=== PATIENT | male | born 1935 | race Two or more races ===

== ENCOUNTER 2018-02-07 16:35 | Inpatient (IN) | payer MEDICARE, OTHER ==
[~2018-02-07] VITALS: Ht 172.7 cm; Wt 74.8 kg
[2018-02-07 07:00] VITALS: BP 133/75
--- NOTE | 2018-02-07 16:45 | NUR ---
Initial contact with pt no acute distress family members at bedside. seen and evaluated by Dr Kraus
--- NOTE | 2018-02-07 16:51 | NUR ---
seen and evaluated by Dr Chavarria
[2018-02-07] MEDS ORDERED: DILT240C53 PO (17:02)
[2018-02-07] MEDS ORDERED: SILO8CAP2 PO (17:02)
[2018-02-07] MEDS ORDERED: METF-440 PO (17:02)
[2018-02-07] MEDS ORDERED: POTA20TA83 PO (17:02)
[2018-02-07] MEDS ORDERED: ESOM40CA52 PO (17:02)
[2018-02-07] MEDS ORDERED: SERT50TA12 PO (17:02)
[2018-02-07] MEDS ORDERED: CAND1TAB16 PO (17:02)
[2018-02-07] MEDS ORDERED: ATOR10TA PO (17:14)
[2018-02-07] MEDS ORDERED: ALOG25TA2 PO (17:14)
[2018-02-07] MEDS ORDERED: ASPI-1169 PO (17:14)
--- NOTE | 2018-02-07 17:32 | NUR ---
PAGED ORTHO PEST MANAGEMENT SUPERVISOR AGUSTIN KAPOOR
--- NOTE | 2018-02-07 17:46 | NUR ---
ORTHO ON-CALL PAGED AGAIN
--- NOTE | 2018-02-07 17:46 | NUR ---
IV access startde by other RN and labs drawn, EKG done by residential gas heat technician
[2018-02-07 17:49] LABS: BASOPHILS % (AUTO) 0.3 % (0.0-2.0); EOSINOPHILS % (AUTO) 0.7 % (0.0-6.0); HEMATOCRIT 41 % (39-51); HEMOGLOBIN 13.9 g/dL (13.5-17.5); LYMPHOCYTES # (AUTO) 0.5 /CMM (0.8-4.8); LYMPHOCYTES % (AUTO) 3.6 % (20.0-44.0); MEAN CORPUSCULAR HGB CONC 34 g/dl (31.0-36.0); MEAN CORPUSCULAR VOLUME 99 fL (80-96); MONOCYTES # (AUTO) 0.8 /CMM (0.1-1.30); MONOCYTES % (AUTO) 5.5 % (2.0-12.0); NEUTROPHILS % (AUTO) 89.9 % (43.0-81.0); PLATELET COUNT (AUTO) 198 /CMM (150-450); RED BLOOD CELL COUNT(AUTO) 4.19 MIL/uL (4.5-6.0); WHITE BLOOD COUNT (AUTO) 14.5 K/uL (4.3-11.0)
[2018-02-07 17:58] LABS: CALCIUM, SERUM 10.1 mg/dL (8.5-10.1); CARBON DIOXIDE 27 mmol/L (21-32); CHLORIDE 103 mmol/L (98-107); CREATININE 1.4 mg/dL (0.6-1.3); GLUCOSE 131 mg/dL (74-106); POTASSIUM 5.2 mmol/L (3.5-5.1); SODIUM SERUM 139 mmol/L (136-145); UREA NITROGEN, BLOOD 19 mg/dL (7-18)
--- NOTE | 2018-02-07 18:03 | NUR ---
report called to Leslie RICO pt going to room 324-1
[2018-02-07] MEDS ORDERED: IV NS 0.9% 1,000 ML IV PRN (18:26)
[2018-02-07] MEDS ORDERED: ONDANSETRON HCL/PF 4 MG/2 ML VIAL IVP PRN ×2 (18:30→19:00)
[2018-02-07] MEDS ORDERED: MAG HYDROX/AL HYDROX/SIMETH 30 ML UDC PO PRN ×2 (18:30→19:00)
[2018-02-07] MEDS ORDERED: MORPHINE SULFATE INJ 2 MG/ML DISP.SYRIN IV PRN ×4 (18:30→19:00)
[2018-02-07] MEDS ORDERED: MAGNESIUM HYDROXIDE 30 ML UDC PO PRN ×2 (18:30→19:00)
[2018-02-07] MEDS ORDERED: TEMAZEPAM 15 MG CAPSULE PO PRN ×2 (18:30→19:00)
[2018-02-07] MEDS ORDERED: ACETAMINOPHEN 325 MG TABLET PO PRN ×2 (18:30→19:00)
--- NOTE | 2018-02-07 18:40 | NUR ---
pt room assigned was changed - waiting for new room
--- NOTE | 2018-02-07 18:46 | NUR ---
returned pt from CT
--- NOTE | 2018-02-07 18:50 | NUR ---
admitted pt to floor room 324 accompanied by community planning technician with belongings and family member
[2018-02-07] MEDS ORDERED: INSULIN REGULAR, HUMAN 100 UNIT/ML 3 ML VIAL SQ PRN ×2 (19:30→21:30)
[2018-02-07] MEDS ORDERED: DEXTROSE 50%-WATER 50 ML DISP.SYRIN IV PRN ×2 (19:30→21:30)
--- NOTE | 2018-02-07 19:30 | NUR ---
TELE/RN RECEIVED PATIENT IN BED AWAKE, ALERT, ORIENTED COMFORTABLE, NO DISTRESS NOTED, FAMILY AT BEDSIDE. WILL MONITOR.
--- NOTE | 2018-02-07 20:00 | NUR ---
TELE/EVENT PROMOTER DONE PER PROTOCOL, PLAN OF CARE DISCUSSED, VERBALIZED UNDERSTANDING, SKIN ASSESSMENT NOT DONE, PER PATIENT HE HAS NO SKIN PROBLEM.
[2018-02-07] MEDS ORDERED: MORPHINE SULFATE INJ 4 MG/ML DISP.SYRIN IV PRN (20:10)
[2018-02-07] MEDS: IV NS 0.9% 1,000 ML IV PRN (20:29)
[2018-02-07] MEDS ORDERED: HEPARIN SODIUM, PORCINE 5000 UNITS/1 ML VIAL SQ SCH (21:00)
--- NOTE | 2018-02-07 21:45 | NUR ---
TELE/RN ERLIN LEÓN, WAS AT BEDSIDE AT 2056. PER NATALIE, SURGERY WILL HAPPEN PROBABLY ON FRIDAY.
[2018-02-07 21:47] VITALS: BP 133/75
[2018-02-07] MEDS: HEPARIN SODIUM, PORCINE 5000 UNITS/1 ML VIAL SQ SCH (21:51)
--- NOTE | 2018-02-07 21:55 | NUR ---
TELE/RN ACCU CHECK BLOOD SUGAR 150, PATIENT REFUSED INSULIN COVERAGE.
[2018-02-07] MEDS: BLOOD SUGAR DIAGNOSTIC 1 EACH STRIP IN SCH ×2 (21:59→22:00)
[2018-02-07] MEDS ORDERED: TEMAZEPAM 7.5 MG CAPSULE PO PRN (22:03)
--- NOTE | 2018-02-07 22:27 | NUR ---
TELE/RH IVF WAS STOPPED PER PATIENT'S REQUEST. PER PATIENT HE A OVERACTIVE BLADDER THAT IVF MAKES HIM URINATE VERY FREQUENTLY AND HE WANTS TO GO SLEEP.
--- NOTE | 2018-02-07 23:00 | NUR ---
TELE/RN PATIENT IS SLEEPING AT THIS TIME, APPEAR COMFORTABLE, BREATHING EVEN AND UNLABORED, CALL LIGHT IN REACH. WILL CONTINUE TO MONITOR.
[2018-02-08] VITALS: BP 135/62
[2018-02-08] MEDS: HYDROMORPHONE 1 MG/1 ML DISP.SYRIN IV PRN ×4 (01:09→14:59)
--- NOTE | 2018-02-08 01:15 | NUR ---
TELE/RN AMENDMENT TO COMMENT ON DILAUDID ADMINISTRATION. DILAUDID WAS SCANNED AND ADMINISTERED AT AROUND 22:23(NOT 21:23).
--- NOTE | 2018-02-08 02:04 | NUR ---
TELE/RN PATIENT IS AWAKE AT THIS TIME, REQUESTED FOR A SLEEPING PILL, TEMAZEPAM 7.5 MG PO WAS GIVEN ORDERED. WILL MONITOR.
[2018-02-08 04:00] VITALS: BP 149/76
[2018-02-08 06:24] LABS: BASOPHILS % (AUTO) 0.1 % (0.0-2.0); EOSINOPHILS % (AUTO) 0.7 % (0.0-6.0); HEMATOCRIT 42 % (39-51); LYMPHOCYTES # (AUTO) 1.1 /CMM (0.8-4.8); MEAN CORPUSCULAR HGB CONC 33 g/dl (31.0-36.0); MEAN CORPUSCULAR VOLUME 98 fL (80-96); MONOCYTES # (AUTO) 1.6 /CMM (0.1-1.30); MONOCYTES % (AUTO) 10.6 % (2.0-12.0); NEUTROPHILS # (AUTO) 12.6 /CMM (1.8-8.9); NEUTROPHILS % (AUTO) 81.6 % (43.0-81.0); PLATELET COUNT (AUTO) 183 /CMM (150-450); RED BLOOD CELL COUNT(AUTO) 4.28 MIL/uL (4.5-6.0); WHITE BLOOD COUNT (AUTO) 15.5 K/uL (4.3-11.0)
[2018-02-08 06:28] LABS: ALBUMIN 3.6 g/dL (3.4-5.0); CALCIUM, SERUM 9.5 mg/dL (8.5-10.1); CARBON DIOXIDE 28 mmol/L (21-32); CHLORIDE 102 mmol/L (98-107); CREATININE 1.1 mg/dL (0.6-1.3); GLUCOSE 140 mg/dL (74-106); PHOSPHORUS 3.2 mg/dL (2.5-4.9); POTASSIUM 3.9 mmol/L (3.5-5.1); SODIUM SERUM 137 mmol/L (136-145); UREA NITROGEN, BLOOD 18 mg/dL (7-18)
[2018-02-08] MEDS: BLOOD SUGAR DIAGNOSTIC 1 EACH STRIP IN SCH ×6 (06:41→22:00)
--- NOTE | 2018-02-08 06:41 | NUR ---
MS/RN ACCU CHECK BLOOD SUGAR = 132, PATIENT REFUSED INSULIN.
--- NOTE | 2018-02-08 07:18 | NUR ---
TELE/RN OPENING NOTED THE PATIENT IS RECEIVED IN BED. PATIENT IS AWAKE. ALERT AND ORIENTED X4 AND ABLE TO MAKE NEEDS KNOWN VERBALLY. THE PATIENT VERBALIZES PAIN OF LEFT HIP 2/10 BUT DOES NOT WANT PAIN MEDICATION. IN ROOM AIR AND DENIES SOB. RESPIRATION REGULAR AND UNLABORED. RAC G 20 PATENT AND SALINE LOCKED. THE PATIENT IS ENCOURAGED IV FLUID TO BE CONNECTED PER ORDER, HOWEVER, THE PATIENT REQUESTED THE IV TO BE CONNECTED LATER TIME. PEDAL PULSES PRESENT. NO S/S POOR CIRCULATION NOTED. BED LOW AND LOCKED. CALL LIGHT WITHIN REACH. WILL CONTINUE TO MONITOR.
[2018-02-08 08:00] VITALS: BP_SYST 144; BP_SYST 145; BP_DIAS 71; BP_DIAS 75
--- NOTE | 2018-02-08 08:21 | NUR ---
TELE/RN NOTE BLOOD SUGAR IS 129. NO COVERAGE GIVEN.
[2018-02-08] MEDS: ASPIRIN 81 MG TAB.CHEW PO SCH (08:44)
[2018-02-08] MEDS: SERTRALINE HCL 50 MG TABLET PO SCH (08:45)
[2018-02-08] MEDS: DILTIAZEM HCL CD 240 MG PO SCH ×2 (08:46→17:02)
[2018-02-08] MEDS: HEPARIN SODIUM, PORCINE 5000 UNITS/1 ML VIAL SQ SCH (08:46)
[2018-02-08] MEDS ORDERED: CANDESARTAN PO SCH ×2 (09:00)
[2018-02-08] MEDS ORDERED: RAPAFLO 8 MG PO SCH (09:00)
[2018-02-08] MEDS ORDERED: HYDROCHLOROTHIAZIDE PO SCH ×2 (09:00)
[2018-02-08] MEDS ORDERED: ALOGLIPTIN 25 MG PO SCH (09:00)
[2018-02-08] MEDS: METFORMIN 500 MG TABLET PO SCH ×2 (09:00→17:00)
[2018-02-08] MEDS ORDERED: PANTOPRAZOLE 40 MG VIAL IV SCH ×2 (09:00)
--- NOTE | 2018-02-08 09:00 | NUR ---
TELE/RN NOTE CASTRO CATHETER F 16 IS INSERTED PER ORDER. THE PATIENT TOLERATED THE INSERTION WELL. CASTRO CATH STARTED TO DRAIN CLEAR, YELLOW COLOR URINE. THE PATIENT DENIES DISCOMFORT. WILL CONTINUE TO MONITOR.
[2018-02-08 09:15] LABS: ALANINE AMINOTRANSFERASE 32 U/L (12-78); ALBUMIN 3.6 g/dL (3.4-5.0); ALKALINE PHOSPHATASE 73 U/L (46-116); ASPARTATE AMINOTRANSFERASE 35 U/L (15-37); BILIRUBIN,DIRECT 0.2 mg/dL (0.0-0.2); BILIRUBIN,TOTAL 0.8 mg/dL (0.2-1.0); TOTAL PROTEIN, SERUM 6.4 g/dL (6.4-8.2)
[2018-02-08 09:24] LABS: CHOLESTEROL 101 mg/dL (<200); HDL CHOLESTEROL 62 mg/dL (40-60); LDL 34 mg/dL (0-99); THYROID STIMULATING HORMONE 1.422 uIU/mL (0.358-3.74); TRIGLYCERIDES 52 mg/dL (30-150)
[2018-02-08] MEDS: ENOXAPARIN SODIUM 40 MG/0.4 ML DISP.SYRIN SQ SCH (09:29)
--- NOTE | 2018-02-08 09:30 | NUR ---
TELE/RN NOTE BED BATH GIVEN.
--- NOTE | 2018-02-08 09:55 | NUR ---
TELE/RN NOTE PATIENT REFUSED METFORMIN 1000 MG PO. EXPLAINED RISKS AND BENEFITS BUT STILL REFUSED. WILL CONTINUE TO MONITOR
[2018-02-08] MEDS: VALSARTAN 80 MG TABLET PO SCH (10:00)
[2018-02-08] MEDS: POTASSIUM CHLORIDE 20 MEQ TAB.PRT.SR PO SCH ×2 (10:00→17:02)
--- NOTE | 2018-02-08 11:11 | NUR ---
TELE/RN NOTE LEFT HIP PAIN 8/10 PER PATIENT. DILAUDID 1 MG IV PUSH IS ADMINISTERED. WILL CONTINUE TO MONITOR.
--- NOTE | 2018-02-08 11:40 | NUR ---
TELE/RN NOTE THE PATIENT REFUSED LOVENOX DUE TO HE ALREADY RECEIVED HEPARIN THIS MORNING. ANCELMO AGUIAR IS AWARE.
--- NOTE | 2018-02-08 11:41 | NUR ---
TELE/RN NOTE REASSESSED PAIN: THE PATIENT VERBALIZED LEFT HIP PAIN REDUCED TO 1/10 AND DOES NOT WANT MORE MEDICATION AT THIS TIME. WILL CONTINUE TO MONITOR.
[2018-02-08 11:52] LABS: APPEARANCE,URINE CLEAR (CLEAR); BILIRUBIN,URINE NEGATIVE (NEGATIVE); BLOOD, URINE TRACE-INTA Ery/uL (NEGATIVE); COLOR,URINE YELLOW (YELLOW); KETONES,URINE TRACE (NEGATIVE); LEUKOCYTE ESTERASE ,URINE NEGATIVE (NEGATIVE); NITRITE, URINE NEGATIVE (NEGATIVE); PROTEIN,URINE NEGATIVE (NEGATIVE); UGLUCOSE NEGATIVE (NEGATIVE); UROBILINOGEN,URINE 0.2 EU/dL (0.2)
--- NOTE | 2018-02-08 12:00 | NUR ---
TELE/RN NOTE BLOOD SUGAR IS 126. NO COVERAGE GIVEN. PATIENT IN STABLE CONDITION.
[2018-02-08 13:28] LABS: BACTERIA,URINE None seen /HPF (None Seen); SQUAMOUS EPITHELIAL CELL,UR Rare /HPF (None Seen)
[2018-02-08 13:29] LABS: WBC,URINE 0-2 /HPF (0-3)
--- NOTE | 2018-02-08 14:11 | NUR ---
TELE/RN NOTE THE PATIENT SLEEPING. RESPIRATION REGULAR AND UNLABORED. IN NO APPARENT DISTRESS.
--- NOTE | 2018-02-08 15:00 | NUR ---
TELE/RN NOTE COMPLAINS OF LEFT HIP PAIN 9/10 AND PRN DILAUDID 1 MG IV PUSH IS GIVEN. WILL CONTINUE TO MONITOR.
--- NOTE | 2018-02-08 15:30 | NUR ---
TELE/RN NOTE THE PATIENT VERBALIZED RELIEF FROM LEFT HIP PAIN AFTER ADMINISTRATION OF PRN DILAUID. RATED PAIN 0/10. RESPIRATION REGULAR AND UNLABORED. NO S/S RESPIRATORY DISTRESS. PATIENT IN NO APPARENT DISTRESS.
[2018-02-08 16:00] VITALS: BP 131/75
[2018-02-08] MEDS: oxyCODONE/APAP (5/325 MG) 1 UDTAB TABLET PO PRN (17:00)
--- NOTE | 2018-02-08 17:00 | NUR ---
TELE/RN NOTE THE PATIENT COMPLAINS OF LEFT HIP PAIN 11/26. PERCOCET 5/325 2 TABS GIVEN. WILL CONTINUE TO MONITOR.
--- NOTE | 2018-02-08 17:10 | NUR ---
TELE/RN NOTE BLOOD SUGAR 112. NO INSULIN COVERAGE GIVEN. THE PATIENT IN STABLE CONDITION.
--- NOTE | 2018-02-08 17:50 | NUR ---
TELE/RN NOTE PATIENT REFUSED METFORMIN 100 MG PO DESPITE EXPLAINING RISKS AND BENEFITS.
[2018-02-08] MEDS: ATORVASTATIN 10 MG TABLET PO SCH (18:00)
--- NOTE | 2018-02-08 18:50 | NUR ---
TELE/RN CLOSING NOTE THE PATIENT ALERT AND ORIENTED X4. DENIES PAIN AT THIS TIME. RESPIRATION REGULAR AND UNLABORED. IN ROOM AIR AND SATURATION IS AT 94%. DENIES SOB. IN NO APPARENT DISTRESS. TELE BOX READING IS SR 86. IV FLUID INFUSING PER ORDER. NO S/S INFILTRATION NOTED. BED LOW AND LOCKED. SIDE RAILS UP X3. CALL LIGHT WITHIN REACH. WILL ENDORSE TO RADIOISOTOPE TECHNICIAN.
[2018-02-08 20:00] VITALS: BP_SYST 127; BP_SYST 137; BP_DIAS 63; BP_DIAS 66
--- NOTE | 2018-02-08 20:12 | NUR ---
RECIEVED ALERT AND ORIENTATED. SPEECH CLEAR NOTED 02 SAT RA 88% DEEP BREATHS TAKE UP TO 93% PLACED ON 02 2 LITERS. CARMEN PPP AND FEET WARM AND MOVEMENT CARMEN LEGS PRESENT. CASTRO PATENT
[2018-02-08] MEDS: TAMSULOSIN 0.4 MG CAP.SR.24H PO SCH (22:20)
[2018-02-08] MEDS: IV NS 0.9% 1,000 ML IV PRN (22:29)
[2018-02-09] VITALS (11 sets, daily range): BP systolic 98–147; BP diastolic 55–69
[2018-02-09] MEDS: HYDROMORPHONE 1 MG/1 ML DISP.SYRIN IV PRN ×8 (00:48→20:08)
[2018-02-09] MEDS: BLOOD SUGAR DIAGNOSTIC 1 EACH STRIP IN SCH ×5 (06:25→22:32)
--- NOTE | 2018-02-09 06:38 | NUR ---
REMAINS ALERT AND ORIENTATED X4. AWARE HE IS GOING FOR SURGERY THIS AM TO REPAIR THE LEFT HIP. REUBEN ROCHA WAS MEDICATED X2 FOR LEFT HIP PAIN AND THE ANALGESIC WAS EFFECTIVE. HE NEEDS TO BE ASKED ABOUT HIS PAIN OTHERWISE HE WONT ASK FOR AN ANALGESIC. THE LEFT LEG REMAINS IN GOOD ALIGNMENT AND PPP AND FOOT WARM/ NPO SINCE MIDNIGHT. CONSENT SIGNED BY THE PATIENT
--- NOTE | 2018-02-09 07:05 | NUR ---
PUPPET ENGINEER INITIAL NOTES Report received at bedside. Patient received in bed, awake, and comfortable. Alert and oriented x4, verbally responsive. Denies any pain at the moment. On continuous oxygen with no SOB/labored breathing noted. Cabello cath noted. Planned surgery on left hip. Consensts are signed. Checklist done. Safety measures in place. Will continue to monitor and assess patient. Call light within reach. TELE: SR [id number]
[2018-02-09 07:40] LABS: BASOPHILS % (AUTO) 0.3 % (0.0-2.0); EOSINOPHILS % (AUTO) 2.5 % (0.0-6.0); HEMATOCRIT 38 % (39-51); HEMOGLOBIN 12.6 g/dL (13.5-17.5); LYMPHOCYTES # (AUTO) 0.8 /CMM (0.8-4.8); LYMPHOCYTES % (AUTO) 6.7 % (20.0-44.0); MEAN CORPUSCULAR HGB CONC 34 g/dl (31.0-36.0); MEAN CORPUSCULAR VOLUME 98 fL (80-96); MONOCYTES # (AUTO) 1.9 /CMM (0.1-1.30); MONOCYTES % (AUTO) 14.8 % (2.0-12.0); NEUTROPHILS # (AUTO) 9.5 /CMM (1.8-8.9); NEUTROPHILS % (AUTO) 75.7 % (43.0-81.0); PLATELET COUNT (AUTO) 151 /CMM (150-450); RED BLOOD CELL COUNT(AUTO) 3.83 MIL/uL (4.5-6.0); WHITE BLOOD COUNT (AUTO) 12.5 K/uL (4.3-11.0)
[2018-02-09 07:56] LABS: CARBON DIOXIDE 27 mmol/L (21-32); CHLORIDE 104 mmol/L (98-107); CREATININE 1.2 mg/dL (0.6-1.3); GLUCOSE 142 mg/dL (74-106); POTASSIUM 4.3 mmol/L (3.5-5.1); SODIUM SERUM 137 mmol/L (136-145); UREA NITROGEN, BLOOD 21 mg/dL (7-18)
--- NOTE | 2018-02-09 07:59 | NUR ---
PERSONALIZATION SPECIALIST - PROCEDURE NOTES Received a call from Pat (OR) to order one unit of blood to be ready for surgery later in the pm.
[2018-02-09 08:04] LABS: CALCIUM, SERUM 8.5 mg/dL (8.5-10.1)
--- NOTE | 2018-02-09 08:32 | NUR ---
COIL CONNECTOR REPAIRERAIR DIRECTOR NOTES Called OR and verified if BP medications are okay to give with small sip of water. Anesthesiologist in a case at the moment. Will wait for call back Addendum: 02/09/18 at 0833 by STACIE LOPEZ RN 127/[phone] 98.7 95%
[2018-02-09] MEDS: PANTOPRAZOLE 40 MG TABLET.DR PO SCH (08:34)
[2018-02-09] MEDS: POTASSIUM CHLORIDE 20 MEQ TAB.PRT.SR PO SCH ×3 (08:34→17:08)
[2018-02-09] MEDS: METFORMIN 500 MG TABLET PO SCH ×2 (08:34→09:00)
[2018-02-09] MEDS: SERTRALINE HCL 50 MG TABLET PO SCH (08:34)
[2018-02-09] MEDS: LINAGLIPTIN 5 MG TABLET PO SCH ×2 (08:34→09:00)
[2018-02-09] MEDS: ENOXAPARIN SODIUM 40 MG/0.4 ML DISP.SYRIN SQ SCH (08:41)
--- NOTE | 2018-02-09 08:43 | NUR ---
MASTER RIGGER NOTES Patient is scheduled for surgery at 1430 for Left hip fracture. NPO since midnight. Patient refused to take metformin, kdur and tradjenta until able to eat. Explained risks vs benefits x2 but continues to refuse at the moment. Awaiting for anesthesiologist to call back for BP and ASA meds Addendum: 02/09/18 at 1018 by STACIE LOPEZ RN Continue to wait for Anesthesiologist to call back for instructions on BP meds administration/Hold
[2018-02-09] MEDS: ASPIRIN 81 MG TAB.CHEW PO SCH (09:00)
[2018-02-09] MEDS ORDERED: LOSARTAN POTASSIUM 50 MG TABLET PO SCH (09:00)
[2018-02-09] MEDS: IV NS 0.9% 1,000 ML IV PRN (11:24)
--- NOTE | 2018-02-09 11:34 | NUR ---
AUTOCAD OPERATOROPERATIONAL COMMUNICATION CHIEF NOTES Spoke to OR nurses (Heavenly): okay to give BP meds now per Dr. Ron. Will administer BP meds prior to surgery. Addendum: 02/09/18 at 1144 by STACIE LOPEZ RN Given
[2018-02-09] MEDS: VALSARTAN 80 MG TABLET PO SCH (11:38)
[2018-02-09] MEDS: DILTIAZEM HCL CD 240 MG PO SCH ×2 (11:38→17:08)
[2018-02-09] MEDS: HYDROCHLOROTHIAZIDE 25 MG TABLET PO SCH (11:39)
--- NOTE | 2018-02-09 11:42 | NUR ---
MS TRIM AND BURR OPERATOR NOTES Patient being transported to OR in stable condition by OR transport staff
[2018-02-09] MEDS ORDERED: IOHEXOL-350 100 ML VIAL IV ONE ×2 (12:25→12:36)
[2018-02-09] MEDS ORDERED: IV NS 0.9% 250 ML IV ONE (12:26)
[2018-02-09] MEDS ORDERED: CT SWABBABLE VALVE TRANS SET 1 EA INFUS.SET MC ONE (12:26)
[2018-02-09] MEDS ORDERED: BACITRACIN 50000 UNITS/VIAL ONE (12:51)
[2018-02-09] MEDS ORDERED: ALBUTEROL FS 2.5 MG/3 ML VIAL.NEB ONE (14:37)
--- NOTE | 2018-02-09 14:52 | NUR ---
MS RN REPORT Received report from OR nurse that surgery is cancelled and patient is intubated due to hypoxemia and will be transferred to ICU.
[2018-02-09] MEDS ORDERED: FENTANYL PF 100MCG/2ML AMPUL ONE (15:05)
--- NOTE | 2018-02-09 15:05 | NUR ---
MS RICO NOTES Patient's daughter, Luz Maria, came back to unit floor. Kept daughter updated. Daughter and decided to wait in the surgery waiting room. Will keep them updated once room in ICU is provided. Per daughter, all belongings were taken home. Only snacks was left behind. Belongings form in the chart with the patient in OR. Addendum: 02/09/18 at 1614 by STACIE LOPEZ RN Informed the daughter of patient's room number in ICU. Escorted daughter and her . Gave report to JACKY Hamlin @[phone])
--- NOTE | 2018-02-09 15:30 | NUR ---
MEDICAL SURGERY NURSE ADMITTED INTO ICU FROM RECOVERY ROOM FOR LOW SPO2. PT PLACED ON SIMPLE MASK AT 10L WITH SPO2 VARIABLE. PT AWAKE AND ALERT. C/O PAIN
[2018-02-09] MEDS ORDERED: IV NS 0.9% 1,000 ML IV SCH (16:00)
[2018-02-09 16:55] LABS: ABG BASE EXCESS -4.4 mmol/L; ABG OXYGEN SATURATION 87.2 % (92.0-98.5); ABG PCO2 36.8 mmHg (35.0-45.0); ABG PH 7.362 (7.350-7.450); ABG PO2 54.8 mmHg (75.0-100.0); AaDO2 188.1 mmHg; COHb 0.5 % (0.5-1.5); MetHb 0.4 % (0.0-1.5); O2Hb 86.4 % (94.0-97.0); SITE, ABG Left Radial
--- NOTE | 2018-02-09 16:58 | NUR ---
MASTER GLAZIER MEDICATED FOR PAIN REQUESTED. RESP EVEN WITH STABLE SPO2.
[2018-02-09] MEDS ORDERED: DEXTROSE 50%-WATER 50 ML DISP.SYRIN IV PRN (17:00)
[2018-02-09] MEDS ORDERED: ALBUTEROL HALF STRENGTH 1.25 MG/3 ML VIAL.NEB NEB PRN (17:30)
[2018-02-09] MEDS ORDERED: IPRATROPIUM NEB FS 0.5 MG/2.5 ML AMPUL.NEB NEB PRN (17:30)
--- NOTE | 2018-02-09 17:30 | NUR ---
MISSILE AND MISSILE CHECKOUT TECHNICIAN PT MORE COMFORTABLE NOW. STATED PAIN RELIEVED BY MED.
[2018-02-09] MEDS: ATORVASTATIN 10 MG TABLET PO SCH (17:43)
--- NOTE | 2018-02-09 18:00 | NUR ---
LINOTYPE MACHINIST PT STABLE ON 10L MASK, WITH SPO2 92-96%. COMFORTABLE. RESP TX ORDERED. ULTRASOUND OF LOWER EXTREMITIES ORDERED.
[2018-02-09] MEDS: methylPREDNISolone SOD SUCC 40 MG/ML VIAL IV SCH ×2 (18:31→20:07)
--- NOTE | 2018-02-09 19:03 | NUR ---
DISABILITY ADVOCATE. INITIAL ASSESSMENT. RECEIVED THE PT REST ON THE BED. AWAKE, ALERT. FOLLOW COMMANDS. SLIP MIXER SHOWING NSR. IV RT AC 20G. IVF NS 100ML/H. OXYGEN SIMPLE MASK. SAT 93%. HOB ELEVATED. WILL CONTINUE TO MONITOR VITALS.
[2018-02-09] MEDS: TAMSULOSIN 0.4 MG CAP.SR.24H PO SCH (22:32)
[2018-02-10] VITALS (32 sets, daily range): BP systolic 90–140; BP diastolic 44–76
--- NOTE | 2018-02-10 03:29 | NUR ---
agricultural education instructor. am care. oral care, bed bath given. linen changed. remaining same oxygen tolerated well. sat 95%. no acute distress noted. media monitor showing nsr. iv rt hand saline lock. afebrile. fc patent. urine draining. turn and reposition q2h. will continue to monitor vitals.
[2018-02-10 04:49] LABS: BASOPHILS % (AUTO) 0.1 % (0.0-2.0); HEMATOCRIT 37 % (39-51); HEMOGLOBIN 12.4 g/dL (13.5-17.5); LYMPHOCYTES # (AUTO) 0.2 /CMM (0.8-4.8); LYMPHOCYTES % (AUTO) 2.1 % (20.0-44.0); MEAN CORPUSCULAR HGB CONC 33 g/dl (31.0-36.0); MEAN CORPUSCULAR VOLUME 98 fL (80-96); MONOCYTES # (AUTO) 0.6 /CMM (0.1-1.30); MONOCYTES % (AUTO) 4.9 % (2.0-12.0); NEUTROPHILS # (AUTO) 10.7 /CMM (1.8-8.9); NEUTROPHILS % (AUTO) 92.9 % (43.0-81.0); PLATELET COUNT (AUTO) 145 /CMM (150-450); WHITE BLOOD COUNT (AUTO) 11.5 K/uL (4.3-11.0)
[2018-02-10 04:58] LABS: CALCIUM, SERUM 8.3 mg/dL (8.5-10.1); CARBON DIOXIDE 24 mmol/L (21-32); CHLORIDE 105 mmol/L (98-107); CREATININE 1.2 mg/dL (0.6-1.3); GLUCOSE 198 mg/dL (74-106); POTASSIUM 4.6 mmol/L (3.5-5.1); SODIUM SERUM 139 mmol/L (136-145); UREA NITROGEN, BLOOD 23 mg/dL (7-18)
[2018-02-10] MEDS: HYDROMORPHONE 1 MG/1 ML DISP.SYRIN IV PRN ×3 (05:03→23:45)
--- NOTE | 2018-02-10 07:00 | NUR ---
RN NOTES RECEIVED PT ON BED, A/Ox3, ON SIMPLE MASK RESPIRATION EVEN AND UNLABORED, O2 SAT 98%, NO SOB NOTED, ON TELE SR HR IN 70'S , R AC IV SITE CLEAN, DRY AND INTACT, SR UP X3, CALL LIGHT WITHIN EASY REACH, BED LOCKED AND IN LOWEST POSITION. CONTINUE TO MONITOR.
[2018-02-10] MEDS: PANTOPRAZOLE 40 MG TABLET.DR PO SCH (08:11)
[2018-02-10] MEDS: methylPREDNISolone SOD SUCC 40 MG/ML VIAL IV SCH ×2 (08:11→22:45)
[2018-02-10] MEDS: ASPIRIN 81 MG TAB.CHEW PO SCH (08:11)
[2018-02-10] MEDS: POTASSIUM CHLORIDE 20 MEQ TAB.PRT.SR PO SCH ×2 (08:12→16:52)
[2018-02-10] MEDS: DILTIAZEM HCL CD 240 MG PO SCH ×2 (08:12→16:52)
[2018-02-10] MEDS: SERTRALINE HCL 50 MG TABLET PO SCH (08:13)
[2018-02-10] MEDS: HYDROCHLOROTHIAZIDE 25 MG TABLET PO SCH (08:13)
[2018-02-10] MEDS: ENOXAPARIN SODIUM 40 MG/0.4 ML DISP.SYRIN SQ SCH (08:13)
[2018-02-10] MEDS: INSULIN REGULAR, HUMAN 100 UNIT/ML 3 ML VIAL SQ PRN ×3 (08:14→16:53)
[2018-02-10] MEDS: BLOOD SUGAR DIAGNOSTIC 1 EACH STRIP IN SCH ×4 (08:14→22:45)
[2018-02-10] MEDS: VALSARTAN 80 MG TABLET PO SCH (09:00)
--- NOTE | 2018-02-10 10:00 | NUR ---
RN NOTES PT PLACED ON O2 3L N/C , O2 SAT 94%, TOLERATING WELL, NO DISTRESS NOTED , CONTINUE TO MONITOR.
[2018-02-10] MEDS: ACETYLCYSTEINE 10% SOLN 400 MG/4 ML VIAL NEB SCH ×3 (11:46→23:16)
[2018-02-10] MEDS: IPRATROPIUM NEB FS 0.5 MG/2.5 ML AMPUL.NEB NEB SCH ×4 (11:46→23:16)
[2018-02-10] MEDS: ALBUTEROL HALF STRENGTH 1.25 MG/3 ML VIAL.NEB NEB SCH ×4 (11:46→23:16)
[2018-02-10] MEDS: oxyCODONE/APAP (5/325 MG) 1 UDTAB TABLET PO PRN (12:47)
--- NOTE | 2018-02-10 14:00 | NUR ---
RN NOTES PT STABLE , REFUSED TO TURN , C/O PAIN WHEN HE TURNS, SUPPORTIVE FAMILY AT THE BEDSIDE, CONTINUE TO MONITOR .
[2018-02-10] MEDS: ATORVASTATIN 10 MG TABLET PO SCH (17:00)
--- NOTE | 2018-02-10 18:18 | NUR ---
RN NOTES NO DISTRESS NOTED, TOLERATING O2 AT 3L N/C WELL , NO SOB NOTED , SR UPx3, CALL LIGHT WITHIN EASY REACH, WILL ENDOSE TO FOSTER CARE SOCIAL WORKER NURSE FOR CONTINUITY OF CARE .
--- NOTE | 2018-02-10 19:30 | NUR ---
TECHNICAL AGRONOMIST NOTE RECEIVED PT A/O X 3-4 AND ABLE TO VERBALIZE NEEDS. ON 4L OF O2 VIA NC AND SATURATING WELL. BREATHING REGULAR AND UNLABORED. TELE-SR 71. IV RAC #20 CLEAN, DRY AND PATENT. PT REFUSING TO BE REPOSITIONED. NO C/O PAIN WITH INACTIVITY. INFORMED PT WILL BE NPO AFTER MIDNIGHT. CASTRO CATHETER IN PLACE AND DRAINING BY GRAVITY. CALL LIGHT WITHIN REACH. WILL CONTINUE TO MONITOR.
[2018-02-10] MEDS: TAMSULOSIN 0.4 MG CAP.SR.24H PO SCH (22:45)
[2018-02-11] VITALS (21 sets, daily range): BP systolic 103–147; BP diastolic 50–112
--- NOTE | 2018-02-11 | NUR ---
SHEET ROCK APPLICATOR NOTE PT C/O 09/26 LEFT HIP PAIN. GAVE DILAUDID 1MG/1ML IVP AND WELL TOLERATED. WILL MONITOR.
[2018-02-11 05:28] LABS: BASOPHILS % (AUTO) 0.1 % (0.0-2.0); HEMATOCRIT 37 % (39-51); HEMOGLOBIN 12.4 g/dL (13.5-17.5); LYMPHOCYTES # (AUTO) 0.3 /CMM (0.8-4.8); LYMPHOCYTES % (AUTO) 1.5 % (20.0-44.0); MEAN CORPUSCULAR HGB CONC 33 g/dl (31.0-36.0); MEAN CORPUSCULAR VOLUME 99 fL (80-96); MONOCYTES % (AUTO) 5.2 % (2.0-12.0); NEUTROPHILS % (AUTO) 93.2 % (43.0-81.0); PLATELET COUNT (AUTO) 176 /CMM (150-450); RED BLOOD CELL COUNT(AUTO) 3.77 MIL/uL (4.5-6.0); WHITE BLOOD COUNT (AUTO) 19.3 K/uL (4.3-11.0)
[2018-02-11 05:29] LABS: CALCIUM, SERUM 8.9 mg/dL (8.5-10.1); CARBON DIOXIDE 24 mmol/L (21-32); CHLORIDE 103 mmol/L (98-107); CREATININE 1.6 mg/dL (0.6-1.3); GLUCOSE 259 mg/dL (74-106); POTASSIUM 4.3 mmol/L (3.5-5.1); SODIUM SERUM 137 mmol/L (136-145); UREA NITROGEN, BLOOD 38 mg/dL (7-18)
[2018-02-11] MEDS: HYDROMORPHONE 1 MG/1 ML DISP.SYRIN IV PRN ×2 (05:53→11:55)
[2018-02-11 07:10] LABS: ABG BASE EXCESS -0.5 mmol/L; ABG OXYGEN SATURATION 94.9 % (92.0-98.5); ABG PCO2 46.2 mmHg (35.0-45.0); ABG PH 7.357 (7.350-7.450); ABG PO2 83.6 mmHg (75.0-100.0); AaDO2 119.5 mmHg; COHb 0.3 % (0.5-1.5); MetHb 0.9 % (0.0-1.5); O2Hb 93.8 % (94.0-97.0); SITE, ABG Right Radial; VENT MODE, BG NASAL CANNULA
[2018-02-11] MEDS: IPRATROPIUM NEB FS 0.5 MG/2.5 ML AMPUL.NEB NEB SCH ×3 (07:19→19:35)
[2018-02-11] MEDS: ACETYLCYSTEINE 10% SOLN 400 MG/4 ML VIAL NEB SCH ×3 (07:19→23:45)
[2018-02-11] MEDS: ALBUTEROL HALF STRENGTH 1.25 MG/3 ML VIAL.NEB NEB SCH ×3 (07:19→19:35)
[2018-02-11] MEDS ORDERED: ANESTHESIA TRAY IN PYXIS 1 EA TRAY MC ONE (07:20)
--- NOTE | 2018-02-11 07:20 | NUR ---
RN NOTES RECEIVED REPORT FROM JACKY GRIMALDO FOR CONTINUITY OF CARE. PATIENT AWAKE AND ALERTX3, VERBALLY RESPONSIVE. ON ROUTE FOR SCHEDULED SURGERY. WILL ASSESS THE PATIENT FURTHER WHEN HE COMES BACK FROM SURGERY.
--- NOTE | 2018-02-11 07:26 | NUR ---
PACKAGER HEAD NOTE PT REMAINED STABLE DURING SHIFT. NO ACUTE DISTRESS NOTED. SURGERY ORDERED STAT CXR AND ABG AND RELAYED RESULTS. PT PICKED UP BY SURGERY TEAM. WILL ENDORSE TO NEXT SHIFT FOR CONTINUITY OF CARE.
[2018-02-11] MEDS: BLOOD SUGAR DIAGNOSTIC 1 EACH STRIP IN SCH ×4 (07:30→21:16)
[2018-02-11] MEDS: PANTOPRAZOLE 40 MG TABLET.DR PO SCH (07:30)
[2018-02-11] MEDS ORDERED: BACITRACIN 50000 UNITS/VIAL ONE (07:54)
[2018-02-11] MEDS ORDERED: BUPIVACAINE 0.25% 75 MG/30 ML VIAL ONE (07:54)
[2018-02-11] MEDS: ASPIRIN 81 MG TAB.CHEW PO SCH (08:09)
[2018-02-11] MEDS: SERTRALINE HCL 50 MG TABLET PO SCH (08:09)
[2018-02-11] MEDS: HYDROCHLOROTHIAZIDE 25 MG TABLET PO SCH (08:09)
[2018-02-11] MEDS: ENOXAPARIN SODIUM 40 MG/0.4 ML DISP.SYRIN SQ SCH (08:09)
[2018-02-11] MEDS: VALSARTAN 80 MG TABLET PO SCH (08:09)
[2018-02-11] MEDS: methylPREDNISolone SOD SUCC 40 MG/ML VIAL IV SCH (08:09)
[2018-02-11] MEDS: DILTIAZEM HCL CD 240 MG PO SCH ×2 (08:09→17:22)
[2018-02-11] MEDS: POTASSIUM CHLORIDE 20 MEQ TAB.PRT.SR PO SCH ×2 (08:09→17:23)
[2018-02-11] MEDS ORDERED: TRANEXAMIC ACID 3,000 MG in SODIUM CHLORIDE IRRIG SOLUTION 70 ML IR ONE (09:00)
[2018-02-11] MEDS ORDERED: HYDROMORPHONE 1 MG/1 ML DISP.SYRIN ONE (10:46)
--- NOTE | 2018-02-11 11:00 | NUR ---
LICENSED MASSAGE THERAPIST NOTE RECEIVED REPORT FROM KAMLA RN FOR TONY.PATIENT IN OR.WAITING FOR PATIENT TO BE ARRIVE THE UNIT.
--- NOTE | 2018-02-11 11:35 | NUR ---
MUSIC COORDINATOR NOTE RECEIVED REPORT FROM BRAYDEN RN FROM OR AND RECEIVED PATIENT.ABDUCTION PILLOW B/W LEGS.SCD ON.PATIENT IS AXCX2.NO SOB NO DISTRESS NOTED AT THIS TIME.ON O2 4L VIA NASAL CANULA,SATURATING 94-96%.CASTRO CATH DRAINING TEA COLOURED URINE.SURGICAL SITE IS INTACT AND NO BLEEDING NOTED.ICE PACK APPLIED.C/O PAIN.ALL NEW ORDERS CARRIED OUT.VIAL SIGNS STABLE .WILL CONTINUE TO MONITOR.
[2018-02-11 11:40] LABS: BASOPHILS % (AUTO) 0.1 % (0.0-2.0); HEMATOCRIT 35 % (39-51); HEMOGLOBIN 11.8 g/dL (13.5-17.5); LYMPHOCYTES # (AUTO) 0.3 /CMM (0.8-4.8); LYMPHOCYTES % (AUTO) 1.7 % (20.0-44.0); MEAN CORPUSCULAR HGB CONC 34 g/dl (31.0-36.0); MEAN CORPUSCULAR VOLUME 99 fL (80-96); MONOCYTES # (AUTO) 0.8 /CMM (0.1-1.30); MONOCYTES % (AUTO) 4.6 % (2.0-12.0); NEUTROPHILS # (AUTO) 15.8 /CMM (1.8-8.9); NEUTROPHILS % (AUTO) 93.6 % (43.0-81.0); PLATELET COUNT (AUTO) 178 /CMM (150-450); RED BLOOD CELL COUNT(AUTO) 3.57 MIL/uL (4.5-6.0); WHITE BLOOD COUNT (AUTO) 16.9 K/uL (4.3-11.0)
[2018-02-11 11:50] LABS: CALCIUM, SERUM 8.5 mg/dL (8.5-10.1); CARBON DIOXIDE 23 mmol/L (21-32); CHLORIDE 107 mmol/L (98-107); CREATININE 1.4 mg/dL (0.6-1.3); GLUCOSE 270 mg/dL (74-106); POTASSIUM 4.6 mmol/L (3.5-5.1); SODIUM SERUM 140 mmol/L (136-145); UREA NITROGEN, BLOOD 38 mg/dL (7-18)
--- NOTE | 2018-02-11 13:00 | NUR ---
PUBLICITY AGENT NOTE INSULIN NOT ADMINISTERED BECAUSE PATIENT REFUSED TO EAT.
[2018-02-11] MEDS: VANCOMYCIN 1 GM in IV D5W 250ml IV SCH ×2 (13:03→23:50)
--- NOTE | 2018-02-11 14:00 | NUR ---
IMPLEMENTATION ANALYST NOTE PATIENT REFUSED PT.WILL DO F/U ON 02/12.
[2018-02-11] MEDS: oxyCODONE/APAP (5/325 MG) 1 UDTAB TABLET PO PRN ×2 (15:03→20:36)
[2018-02-11] MEDS: ATORVASTATIN 10 MG TABLET PO SCH (17:23)
--- NOTE | 2018-02-11 17:25 | NUR ---
ZINC PLATER NOTE SEEN BY ,WITH NNO AT THIS TIME.WILL CONTINUE TO MONITOR.
[2018-02-11] MEDS: INSULIN REGULAR, HUMAN 100 UNIT/ML 3 ML VIAL SQ PRN ×2 (18:09→21:17)
--- NOTE | 2018-02-11 19:13 | NUR ---
LACE BURN OUT TENDER CLOSING NOTE PATIENT IS AXCX4.NO SOB NO DISTRESS NOTED AT THIS TIME.ON O2 4L VIA NASAL CANULA,SATURATING 94-98%.CASTRO CATH DRAINING TEA COLOURED URINE.SURGICAL SITE IS INTACT AND NO BLEEDING NOTED.ICE PACK APPLIED.C/O PAIN 03/29.PATIENT ENCOURAGED TO DO INCENTIVE SPIROMETRY.INSTRUCTIONS GIVEN.REFUSED TURN AND REPOSITION.ONLY DID ONE TIME.REPORT GIVEN TO PM NURSE FOR TONY.
--- NOTE | 2018-02-11 19:45 | NUR ---
ICU/PHARMACIST HOSPITAL RECEIVED REPORT FROM DAY NURSE. SEE FLOWSHEET FOR ASSESSMENT AND LEFT HIP DRESSING WHICH ARE ADDRESSED HERE AND ALSO THE TREATMENT AND PLAN OF CARE. PT IS CURRENTLY WITH N/C, TOLERATING THIS WELL WITH SATURATION 97-99%. INCENTIVE SPIROMETER AT BEDSIDE, PT SHOWN AND ALSO GOOD RETURN DEMO. PT WAS TURNED AND REPOSITIONED FOR COMFORT AND CARE. WILL CONTINUE TO MONITOR THIS PT FOR ANY CHANGES WHICH REQUIRE IMMEDIATE INTERVENTIONS. PT APPEARS TO RESTING COMFORTABLY.
--- NOTE | 2018-02-11 20:05 | NUR ---
ICU/FLAT CUTTER INCENTIVE SPIROMETER X 10 WAS DONE WITH PT, PT HAD GOOD PRODUCTIVE COUGH.
--- NOTE | 2018-02-11 20:45 | NUR ---
ICU/SALES VENDOR 2 TABS PERCOCET GIVEN FOR PAIN, RATED 10/10 TO LEFT HIP PAIN. WILL CONTINUE TO MONITOR THIS PT'S PAIN LEVEL.
[2018-02-11] MEDS: TAMSULOSIN 0.4 MG CAP.SR.24H PO SCH (21:16)
--- NOTE | 2018-02-11 22:10 | NUR ---
ICU/OUTSOLE FLEXER PERCOCET 2 TABS GIVEN EARLIER APPEARS TO BE EFFECTIVE, PT APPEARS TO BE ASLEEP. THERE IS NO ACUTE RESPIRATORY DISTRESS SEEN AT THIS TIME. WILL CONTINUE TO MONITOR THIS PT'S PAIN LEVEL. CALL LIGHT WITHIN REACH.
[2018-02-12] VITALS (22 sets, daily range): BP systolic 106–134; BP diastolic 47–65
[2018-02-12] MEDS: IPRATROPIUM NEB FS 0.5 MG/2.5 ML AMPUL.NEB NEB SCH ×4 (01:52→20:02)
[2018-02-12] MEDS: ALBUTEROL HALF STRENGTH 1.25 MG/3 ML VIAL.NEB NEB SCH ×4 (01:52→20:02)
[2018-02-12] MEDS: oxyCODONE/APAP (5/325 MG) 1 UDTAB TABLET PO PRN ×3 (04:08→13:10)
--- NOTE | 2018-02-12 04:10 | NUR ---
ICU/WELLNESS SPECIALIST PT C/O OF PAIN RATED 10/10 TO LEFT HIP, 2 TABS PERCOCET GIVEN FOR THIS. ALSO AT THIS TIME PT WAS GIVEN MOM TO AVOID ANY CONSTIPATION. WILL CONTINUE TO MONITOR THIS PT'S PAIN LEVEL.
[2018-02-12 04:38] LABS: HEMATOCRIT 31 % (39-51); HEMOGLOBIN 10.6 g/dL (13.5-17.5); LYMPHOCYTES # (AUTO) 0.3 /CMM (0.8-4.8); LYMPHOCYTES % (AUTO) 1.9 % (20.0-44.0); MEAN CORPUSCULAR HGB CONC 34 g/dl (31.0-36.0); MEAN CORPUSCULAR VOLUME 97 fL (80-96); MONOCYTES # (AUTO) 1.4 /CMM (0.1-1.30); NEUTROPHILS # (AUTO) 14.2 /CMM (1.8-8.9); NEUTROPHILS % (AUTO) 89.1 % (43.0-81.0); PLATELET COUNT (AUTO) 182 /CMM (150-450)
[2018-02-12 04:51] LABS: CARBON DIOXIDE 27 mmol/L (21-32); CHLORIDE 107 mmol/L (98-107); CREATININE 1.2 mg/dL (0.6-1.3); GLUCOSE 209 mg/dL (74-106); POTASSIUM 4.7 mmol/L (3.5-5.1); SODIUM SERUM 140 mmol/L (136-145); UREA NITROGEN, BLOOD 35 mg/dL (7-18)
--- NOTE | 2018-02-12 05:10 | NUR ---
ICU/SETTER INDUCTION HEATING EQUIPMENT PT WAS GIVEN AM CARE, POST PAIN MEDICATION. PT TOLERATED THIS WELL. CALL LIGHT WITHIN REACH.
--- NOTE | 2018-02-12 05:30 | NUR ---
ICU/YARD ATTENDANT INCENTIVE SPIROMETER X 10 WAS DONE WITH PT, PT HAD GOOD PRODUCTIVE COUGH
[2018-02-12] MEDS: BLOOD SUGAR DIAGNOSTIC 1 EACH STRIP IN SCH ×4 (06:50→22:05)
[2018-02-12] MEDS: INSULIN REGULAR, HUMAN 100 UNIT/ML 3 ML VIAL SQ PRN ×3 (06:54→22:07)
--- NOTE | 2018-02-12 07:30 | NUR ---
ICU/RN: Pt received, no distress noted, A&Ox4, pleasant, denies pain or discomfort. HL flushed and patent. L Hip surgical dressing x2 C/D/I. FC draining well to gravity. Oriented to POC, incentive spirometer use, verbalized understanding. Will cont to monitor pt.
[2018-02-12] MEDS: ACETYLCYSTEINE 10% SOLN 400 MG/4 ML VIAL NEB SCH ×2 (07:45→15:26)
[2018-02-12] MEDS: methylPREDNISolone SOD SUCC 40 MG/ML VIAL IV SCH (08:26)
[2018-02-12] MEDS: POTASSIUM CHLORIDE 20 MEQ TAB.PRT.SR PO SCH ×2 (08:26→17:26)
[2018-02-12] MEDS: HYDROCHLOROTHIAZIDE 25 MG TABLET PO SCH (08:27)
[2018-02-12] MEDS: PANTOPRAZOLE 40 MG TABLET.DR PO SCH (08:27)
[2018-02-12] MEDS: DILTIAZEM HCL CD 240 MG PO SCH ×2 (08:27→17:00)
[2018-02-12] MEDS: SERTRALINE HCL 50 MG TABLET PO SCH (08:27)
[2018-02-12] MEDS: VALSARTAN 80 MG TABLET PO SCH (08:28)
[2018-02-12] MEDS: ASPIRIN 81 MG TAB.CHEW PO SCH (08:28)
--- NOTE | 2018-02-12 10:00 | NUR ---
ICU/RN: Harpreet Cervantes, ORAL SURGERY PHYSICIAN at bedside, updated on pt status. Informed of pt's difficulty ambulating - per ORAL SURGERY PHYSICIAN, continue current orders, pain management, keep FC until able to ambulate, clear for downgrade to med surg.
[2018-02-12] MEDS: IV NS 0.9% 1,000 ML IV PRN ×2 (11:27→23:29)
[2018-02-12] MEDS: ENOXAPARIN SODIUM 40 MG/0.4 ML DISP.SYRIN SQ SCH (11:41)
--- NOTE | 2018-02-12 11:55 | NUR ---
ICU/RN: Pt blood glucose 196mg/dl; refused insulin coverage - per pt "I don't have much of an appetite for lunch right now. I'll try to eat later."
[2018-02-12] MEDS ORDERED: ENSURE CLEAR 237 ML LIQUID (MIX BERRY) PO SCH (12:00)
[2018-02-12] MEDS: GLUCERNA SHAKE 237 ML CAN PO SCH ×2 (13:06→17:26)
--- NOTE | 2018-02-12 15:15 | NUR ---
MS SEAT NAILER NOTE RECEIVED PT FROM ICU VIA BED. PT IS S/P ANTERIOR LEFT HIP HEMIARTHROPLASTY WITH DR. CAI ON 02/11. PT IS ALERT AND ORIENTED X4, DENIES N/V, CHEST PAIN, SOB. BREATHING IS EVEN AND UNLABORED ON 3L NC. VS WNL, PT STATES HE DOES NOT HAVE ANY PAIN AT THIS TIME. LEFT HIP DRESSINGS ARE CLEAN, DRY AND INTACT, NEUROVASCULAR STATUS WNL. CASTRO CATHETER NOTED TO BE DRAINING YELLOW, CLEAR URINE. R AC #20G IV IS INFUSING NS @ 100ML/HR WITHOUT REDNESS OR SWELLING. ALL BELONGINGS ACCOUNTED FOR AND BELONGINGS LIST SIGNED AND PLACED IN CHART PER PROTOCOL. UNIT ORIENTATION PROVIDED TO PT AND DAUGHTER, BOTH VERBALIZED AGREEMENT. PROVIDED ICE WATER AND GLUCERNA SHAKE PER PT REQUEST. ALL NEEDS ATTENDED TO, BED IS LOCKED AND IN LOWEST POSITION, SIDE RAILS UP X2, BED ALARM ON, CALL LIGHT WITHIN REACH.
--- NOTE | 2018-02-12 15:15 | NUR ---
ICU/RN: Pt transferred to [facility] in stable condition, no distress noted, breathing even and unlabored, on o2 3L/min via NC. Pt accompanied by family, transferred with all belongings. Bedside update given to JACKY Medrano for TONY.
[2018-02-12] MEDS: ATORVASTATIN 10 MG TABLET PO SCH (17:26)
--- NOTE | 2018-02-12 19:31 | NUR ---
MS RN CLOSING NOTE PT IN BED, ALERT AND ORIENTED X4, DENIES N/V, CHEST PAIN, SOB. BREATHING IS EVEN AND UNLABORED ON 4L NC. LEFT HIP DRESSINGS ARE CLEAN, DRY AND INTACT, NEUROVASCULAR STATUS WNL. CASTRO CATHETER NOTED TO BE DRAINING YELLOW, CLEAR URINE. R AC #20G IV IS INFUSING NS @ 100ML/HR WITHOUT REDNESS OR SWELLING. FAMILY AT THE BEDSIDE. ADLS PROVIDED AND PT ASSISTED TO TURN AND REPOSITION Q2H FOR THE DURATION OF THE SHIFT. ALL NEEDS ATTENDED TO, BED IS LOCKED AND IN LOWEST POSITION, SIDE RAILS UP X2, BED ALARM ON, CALL LIGHT WITHIN REACH. ENDORSED TO JACKY EASTON FOR TONY.
--- NOTE | 2018-02-12 19:55 | NUR ---
RN OPENING NOTES RECEIVED REPORT FROM DAYSHIFT JACKY FLORIAN. FOUND Pt AWAKE, SITTING UP IN BED. NO S/S OF ACUTE DISTRESS OR SOB NOTED. RESPIRATIONS EVEN AND UNLABORED. FAMILY VISITING AT BEDSIDE WATCHING TV. IV ACCESS RAC #20G, IVF NS 100ML/HR. SAFETY MEASURES IN PLACE. BED LOW, LOCKED, HOB ELEVATED, SIDE RAILS UP, CALL LIGHT AND BEDSIDE TABLE WITHIN REACH. WILL CONTINUE TO MONITOR Pt's CONDITION AND SAFETY THROUGHOUT THE NIGHT.
[2018-02-12] MEDS: TAMSULOSIN 0.4 MG CAP.SR.24H PO SCH (22:00)
--- NOTE | 2018-02-12 22:21 | NUR ---
RN NOTES ACCUCHECK BG 230. ACCIDENTALLY PRESSED REJECT. RECHECKED BG AGAIN 2ND READING CAME OUT TO 246. STILL WITHIN THE SAME LIMITS TO GIVE 4UN OF INSULIN PER SLIDING SCALE.
[2018-02-13] MEDS: ACETYLCYSTEINE 10% SOLN 400 MG/4 ML VIAL NEB SCH ×2 (00:05→08:29)
[2018-02-13] MEDS: ALBUTEROL HALF STRENGTH 1.25 MG/3 ML VIAL.NEB NEB SCH ×2 (02:35→08:29)
[2018-02-13] MEDS: IPRATROPIUM NEB FS 0.5 MG/2.5 ML AMPUL.NEB NEB SCH ×2 (02:35→08:29)
--- NOTE | 2018-02-13 06:35 | NUR ---
RN NOTES AC ACCUCHECK BG 184. ADMINISTERED 3UN OF INSULIN PER SLIDING SCALE ON LT DELTOID.
[2018-02-13] MEDS: BLOOD SUGAR DIAGNOSTIC 1 EACH STRIP IN SCH ×2 (06:36→12:26)
[2018-02-13] MEDS: PANTOPRAZOLE 40 MG TABLET.DR PO SCH (06:36)
[2018-02-13 06:39] LABS: HEMATOCRIT 30 % (39-51); HEMOGLOBIN 10.1 g/dL (13.5-17.5); LYMPHOCYTES # (AUTO) 0.3 /CMM (0.8-4.8); LYMPHOCYTES % (AUTO) 2.4 % (20.0-44.0); MEAN CORPUSCULAR HGB CONC 34 g/dl (31.0-36.0); MEAN CORPUSCULAR VOLUME 98 fL (80-96); MONOCYTES # (AUTO) 1.4 /CMM (0.1-1.30); MONOCYTES % (AUTO) 9.9 % (2.0-12.0); NEUTROPHILS # (AUTO) 11.9 /CMM (1.8-8.9); NEUTROPHILS % (AUTO) 87.7 % (43.0-81.0); PLATELET COUNT (AUTO) 188 /CMM (150-450); RED BLOOD CELL COUNT(AUTO) 3.09 MIL/uL (4.5-6.0); WHITE BLOOD COUNT (AUTO) 13.6 K/uL (4.3-11.0)
[2018-02-13] MEDS: INSULIN REGULAR, HUMAN 100 UNIT/ML 3 ML VIAL SQ PRN ×2 (06:42→12:25)
[2018-02-13 06:45] LABS: CALCIUM, SERUM 9.2 mg/dL (8.5-10.1); CARBON DIOXIDE 27 mmol/L (21-32); CHLORIDE 108 mmol/L (98-107); CREATININE 1.2 mg/dL (0.6-1.3); GLUCOSE 200 mg/dL (74-106); POTASSIUM 5.1 mmol/L (3.5-5.1); SODIUM SERUM 142 mmol/L (136-145); UREA NITROGEN, BLOOD 42 mg/dL (7-18)
--- NOTE | 2018-02-13 06:55 | NUR ---
RN CLOSING NOTES NO SIGNIFICANT CHANGES IN Pt's CONDITION. Pt REMAINS STABLE PER BASELINE. Pt IS RESTING IN BED. RESPIRATIONS EVEN AND UNLABORED. NO S/S OF ACUTE DISTRESS OR SOB NOTED DURING THE NIGHT. ALL NEEDS MET AND ATTENDED TO. SAFETY MEASURES IN PLACE. WILL ENDORSE TO DAYSHIFT RN FOR Pt's TONY.
--- NOTE | 2018-02-13 07:07 | NUR ---
MS RN NOTES PATIENT IN BED ALERT ORIENTED X 4. NO ACUTE DISTRESS NOTED. BREATHING UNLABORED. NO SOB NOTED. IV ACCESS PATENT AND INTACT, NO REDNESS OR SWELLING NOTED. CASTRO CATHETER INTACT, DRAINING WELL. SAFETY MEASURES IN PLACE. CALL LIGHT WITHIN REACH. WILL CONTINUE TO MONITOR ACCORDINGLY.
[2018-02-13 08:00] VITALS: BP 136/61
[2018-02-13] MEDS: ASPIRIN 81 MG TAB.CHEW PO SCH (08:53)
[2018-02-13] MEDS: POTASSIUM CHLORIDE 20 MEQ TAB.PRT.SR PO SCH (08:53)
[2018-02-13] MEDS: SERTRALINE HCL 50 MG TABLET PO SCH (08:53)
[2018-02-13] MEDS: GLUCERNA SHAKE 237 ML CAN PO SCH (08:53)
[2018-02-13] MEDS: methylPREDNISolone SOD SUCC 40 MG/ML VIAL IV SCH (08:53)
[2018-02-13] MEDS: VALSARTAN 80 MG TABLET PO SCH (08:54)
[2018-02-13 08:55] VITALS: BP 136/61
[2018-02-13] MEDS: DILTIAZEM HCL CD 240 MG PO SCH (08:55)
[2018-02-13] MEDS ORDERED: ALOGLIPTIN 25 MG PO SCH (09:00)
[2018-02-13] MEDS: IV NS 0.9% 1,000 ML IV PRN (10:04)
--- NOTE | 2018-02-13 10:05 | NUR ---
MS RN NOTES FOLLOWED UP WITH PATIENT REGARDING HOME MEDICATIONS TANIA, PATIENT SAID HIS DAUGHTER WILL BRING IT.
[2018-02-13] MEDS: ENOXAPARIN SODIUM 40 MG/0.4 ML DISP.SYRIN SQ SCH (12:26)
[2018-02-13] MEDS ORDERED: OXYC1TAB8 PO (13:02)
[2018-02-13] MEDS ORDERED: PRED20TA PO (13:02)
[2018-02-13] MEDS ORDERED: TAMS-12 PO (13:02)
[2018-02-13] MEDS ORDERED: RIVA10TA PO (13:02)
[2018-02-13] MEDS ORDERED: Blood Sugar Diagnostic IN (13:02)
[2018-02-13] MEDS ORDERED: NUT.237L45 PO (13:02)
[2018-02-13] MEDS ORDERED: VALS80TA2 PO (13:02)
--- NOTE | 2018-02-13 13:35 | NUR ---
Wound care consult. Patient seen and skin integrity assessment done. Patient noted with surgical incision to left hip, dressing changed earlier in day by MD, no other open wounds seen. Dry skin only noted to both heels, but no redness. Recommended to continue to off load both heels. Patient's juan score of 12. All skin management and prevention measures discussed with nursing and patient at bedside. Care plan in place.
--- NOTE | 2018-02-13 14:35 | NUR ---
MS COORDINATOR CARDIOPULMONARY SERVICES NOTES PATIENT DISCHARGE TO [facility] WITH STABLE VITAL SIGNS. ACUTE DISTRESS NOTED. BREATHING UNLABORED. NO SOB NOTED. DISCHARGE INSTRUCTIONS GIVEN TO THE PATIENT INCLUDING FOLLOW UP WITH DR CAI, VERBALIZED UNDERSTANDING. REPORT GIVEN TO JACKY MARTE FROM [facility]. DISCHARGE PAPERS HANDED OVER TO EMT PERSONNEL. IV ACCESS REMOVED, NO BLEEDING, NO REDNESS, NO SWELLING NOTED. LEFT HIP SURGERY DRESSING INTACT,CLEAN AND DRY, ORTHO MD TO DO DRESSING CHANGE. NO REDNESS , NO BLEEDING, NO SWELLING AROUND THE SURGERY SITE. ALL BELONGINGS ACCOUNTED FOR. PATIENT PICKED UP VIA AMBULANCE IN A GURNEY ACCOMPANIED BY 2 EMT PERSONNEL AND SON IN LAW IN STABLE CONDITION.
== END 2018-02-13 14:39 | DRG 469 ==
LOC: ER 16:45 → MED 19:05 → TELE 23:19 → MED 02-09 10:13 → ICU 02-09 15:45 → MED 02-12 15:24
PROVIDERS: ADMIT Nurse Practitioner Acute Care
PROC: 0BH17EZ Insertion of Endotracheal Airway into Trachea, Via Natural or Artificial Opening (ICD-10-PCS; 2018-02-07)
PROC: 0SRB0JZ Replacement of Left Hip Joint with Synthetic Substitute, Open Approach (ICD-10-PCS; principal; 2018-02-11 07:30)
DX: S72.012A Unspecified intracapsular fracture of left femur, initial encounter for closed fracture (principal); J96.01 Acute respiratory failure with hypoxia; N17.0 Acute kidney failure with tubular necrosis; J98.11 Atelectasis; J44.1 Chronic obstructive pulmonary disease with (acute) exacerbation; T17.890A Other foreign object in other parts of respiratory tract causing asphyxiation, initial encounter; I25.10 Atherosclerotic heart disease of native coronary artery without angina pectoris; E78.5 Hyperlipidemia, unspecified; F32.9 Major depressive disorder, single episode, unspecified; Z95.1 Presence of aortocoronary bypass graft; F17.210 Nicotine dependence, cigarettes, uncomplicated; D72.829 Elevated white blood cell count, unspecified; E87.5 Hyperkalemia; I12.9 Hypertensive chronic kidney disease with stage 1 through stage 4 chronic kidney disease, or unspecified chronic kidney disease; E11.22 Type 2 diabetes mellitus with diabetic chronic kidney disease; N18.9 Chronic kidney disease, unspecified; K21.9 Gastro-esophageal reflux disease without esophagitis; W01.0XXA Fall on same level from slipping, tripping and stumbling without subsequent striking against object, initial encounter; Y92.89 Other specified places as the place of occurrence of the external cause; N40.0 Benign prostatic hyperplasia without lower urinary tract symptoms; Z53.09 Procedure and treatment not carried out because of other contraindication; Z86.11 Personal history of tuberculosis; T50.8X5A Adverse effect of diagnostic agents, initial encounter; T38.0X5A Adverse effect of glucocorticoids and synthetic analogues, initial encounter; E86.1 Hypovolemia
CPT/HCPCS: 36415; 36600; 71045-TC; 72170-TC; 73020; 73502; 73700-TC; 80048-TC; 80061-TC; 80076-TC; 81000-TC; 82040-TC; 82962-TC; 83735-TC; 84100-TC; 84439-TC; 84443-TC; 84484-TC; 85025-TC; 85730-TC; 86850-TC; 86921-TC; 87081-TC; 93307-TC; 93970-TC; 94760-TC; 94799-TC; 97110-TC; 97116-TC; 97530-TC; A4217; A4606; A6402; C9113; G0378; J0330; J0690; J1100; J1170; J1644; J1650; J1815; J2270; J2710; J2920; J3010; J3370; J3490; J7030; J7050; J7060; Q9967; Z7610